=== PATIENT | female | born 1960 | race African-American/Black ===

== ENCOUNTER 2017-07-11 19:49 | Emergency (ER) | payer SELFPAY ==
[~2017-07-11] VITALS: Ht 160 cm; Wt 69.0 kg
[~2017-07-11 19:49] MED LIST: ASPI-1159 PO; ATEN50TA PO; GLIP10TA10 PO; METF10002 PO; PIOG15TA23 PO; PRAV10TA35 PO; SPIR100T24 PO
[2017-07-12] MEDS ORDERED: ATENOLOL 25MG TABLET PO ONE (07:00)
[2017-07-12] MEDS ORDERED: SPIRONOLACTONE 25MG TABLET PO SCH (07:00)
[2017-07-12 07:08] LABS: BASOPHILS % 0.7 % (0.0-2.0); HEMOGLOBIN. 13.7 g/dL (12.0-16.0); LYMPHOCYTES % 34.3 % (20.0-50.0); MEAN CORPUSCULAR HEMOGLOBIN 27.9 pg (28.0-32.0); MEAN CORPUSCULAR VOLUME 83.6 fL (81.0-99.0); MEAN PLATELET VOLUME 7.8 fl (7.4-10.4); MONOCYTES % 11.4 % (2.0-8.0); NEUTROPHILS % 52.6 % (40.0-76.0); PLATELET 354 x1000/uL (130-400); RED CELL DISTRIBUTION WIDTH 14.2 % (11.6-14.6)
[2017-07-12 07:16] LABS: INR 1.1; PROTHROMBIN TIME 11.4 sec (9.4-11.6)
[2017-07-12 07:31] LABS: BETA HYDROXYBUTYRATE 0.3 mMol/L (0.0-0.3); CARBON DIOXIDE 29 mEq/L (21-32); CHLORIDE 97 mEq/L (98-107); TROPONIN I 0.02 ng/mL (0.00-0.04)
[2017-07-12] MEDS ORDERED: ATENOLOL 100 MG TABLET PO ONE (08:15)
[2017-07-12 08:34] LABS: CLARITY URINE CLEAR (CLEAR); COLOR URINE YELLOW (YELLOW); KETONES URINE 1+ (NEGATIVE); LEUKOCYTE ESTERASE URINE NEGATIVE (NEGATIVE); NITRITE URINE NEGATIVE (NEGATIVE); OCCULT BLOOD URINE NEGATIVE (NEGATIVE); PROTEIN URINE 1+ (NEGATIVE); UROBILINOGEN URINE 0.2 E.U./dL (0.2-1.0)
[2017-07-12 10:14] LABS: *AMPHETAMINES SCREEN URINE PRESUMTIVE POSITIVE (NEGATIVE); *BARBITURATES SCREEN URINE NEGATIVE (NEGATIVE); CANNABINOID URINE SCREEN PRESUMTIVE POSITIVE (NEGATIVE); METHADONE URINE SCREEN NEGATIVE (NEGATIVE); OPIATES URINE SCREEN NEGATIVE (NEGATIVE); PHENCYCLIDINE URINE SCREEN NEGATIVE (NEGATIVE)
[2017-07-12 10:19] LABS: *BENZODIAZEPINES SCREEN URINE NEGATIVE (NEGATIVE); *COCAINE SCREEN URINE NEGATIVE (NEGATIVE)
[2017-07-12 11:13] VITALS: BP 156/92
[2017-07-12] MEDS ORDERED: SULFAMETHOXAZOLE/TRIMETHOPRIM 800/160MG TABLET PO ONE (11:15)
[2017-07-12 12:13] LABS: HEPATITIS B SURFACE ANTIGEN NEGATIVE
[2017-07-12 12:38] LABS: HEPATITIS B CORE AB IGM NEGATIVE
[2017-07-12 12:39] LABS: HEPATITIS A AB IGM NEGATIVE (NEGATIVE)
== END 2017-07-12 11:20 | disposition home or self-care (01) ==
LOC: ER 19:49
DX: M94.0 Chondrocostal junction syndrome [Tietze] (principal); N39.0 Urinary tract infection, site not specified; I10 Essential (primary) hypertension; E11.65 Type 2 diabetes mellitus with hyperglycemia; E11.21 Type 2 diabetes mellitus with diabetic nephropathy; N17.0 Acute kidney failure with tubular necrosis; F12.10 Cannabis abuse, uncomplicated; F15.10 Other stimulant abuse, uncomplicated; F17.200 Nicotine dependence, unspecified, uncomplicated; R81 Glycosuria; Z79.82 Long term (current) use of aspirin; Z91.14 Patient's other noncompliance with medication regimen; Z91.19 Patient's noncompliance with other medical treatment and regimen
CPT/HCPCS: 36415; 71045; 80053; 80305; 81001; 81025; 82010; 82962; 83036; 83880; 84484; 85025; 85610; 93005; 99285; Z7610; 86705; 86709; 86803; 87340

== ENCOUNTER 2017-10-10 16:26 | Emergency (ER) | payer BC ==
[~2017-10-10] VITALS: Ht 160 cm; Wt 64.0 kg
[2017-10-10 17:34] LABS: BASOPHILS % 0.7 % (0.0-2.0); EOSINOPHILS % 2.1 % (0.0-5.0); HEMATOCRIT. 36.4 % (36.0-48.0); HEMOGLOBIN. 12.2 g/dL (12.0-16.0); LYMPHOCYTES % 42.7 % (20.0-50.0); MEAN CORPUSCULAR HEMOGLOBIN 28.8 pg (28.0-32.0); MEAN CORPUSCULAR VOLUME 85.7 fL (81.0-99.0); MONOCYTES % 7.4 % (2.0-8.0); NEUTROPHILS % 47.1 % (40.0-76.0); PLATELET 342 x1000/uL (130-400); RED BLOOD CELL COUNT 4.25 mill/uL (4.2-5.4); RED CELL DISTRIBUTION WIDTH 15.3 % (11.6-14.6)
[2017-10-10 17:38] LABS: CHLORIDE 99 mEq/L (98-107)
[2017-10-10 17:45] LABS: PHOSPHORUS 2.7 mg/dL (2.5-4.9)
[2017-10-10 17:48] LABS: BETA HYDROXYBUTYRATE 0.2 mMol/L (0.0-0.3)
[2017-10-10] MEDS ORDERED: SODIUM CHLORIDE 0.9% 1,000 ML IV ONE (21:10)
[2017-10-10] MEDS ORDERED: INSULIN REGULAR (HUMULIN R) 300UNITS/3ML IV ONE (21:15)
[2017-10-10 23:01] VITALS: BP 171/107
== END 2017-10-11 00:45 | disposition home or self-care (01) ==
LOC: ER 17:20
DX: E11.65 Type 2 diabetes mellitus with hyperglycemia (principal); I10 Essential (primary) hypertension; E86.0 Dehydration; F17.200 Nicotine dependence, unspecified, uncomplicated; F12.10 Cannabis abuse, uncomplicated; Z79.82 Long term (current) use of aspirin; Z79.84 Long term (current) use of oral hypoglycemic drugs
CPT/HCPCS: 36415; 80053; 82010; 82962; 83735; 84100; 85025; 96361; 96374; 99284; J1815; J7030; Z7610

== ENCOUNTER 2019-03-16 18:09 | Emergency (ER) | payer SELFPAY ==
[~2019-03-16] VITALS: Ht 167.6 cm; Wt 57.0 kg
[~2019-03-16 18:09] MED LIST changes: -ASPI-1159 PO; +ASPI-1393 PO; +METF-416 PO; -METF10002 PO; -SPIR100T24 PO; +SPIR100T5 PO
[2019-03-16] MEDS ORDERED: SODIUM CHLORIDE 0.9% 1,000 ML IV ONE (18:30)
[2019-03-16] MEDS ORDERED: ONDANSETRON HCL 4MG/2ML INJ IV STA (18:30)
[2019-03-16 19:24] VITALS: BP 137/89
[2019-03-16 20:23] LABS: BASOPHILS % 0.5 % (0.0-2.0); EOSINOPHILS % 1.7 % (0.0-5.0); HEMATOCRIT. 43.9 % (36.0-48.0); HEMOGLOBIN. 14.6 g/dL (12.0-16.0); LYMPHOCYTES % 25.8 % (20.0-50.0); MEAN CORPUSCULAR HEMOGLOBIN 28.2 pg (28.0-32.0); MEAN CORPUSCULAR VOLUME 85.1 fL (81.0-99.0); MEAN PLATELET VOLUME 7.9 fl (7.4-10.4); MONOCYTES % 7.7 % (2.0-8.0); NEUTROPHILS % 64.3 % (40.0-76.0); PLATELET 292 x1000/uL (130-400); RED BLOOD CELL COUNT 5.16 mill/uL (4.2-5.4); RED CELL DISTRIBUTION WIDTH 15.4 % (11.6-14.6)
[2019-03-16 20:30] LABS: PROTHROMBIN TIME 10.2 sec (9.6-11.0)
[2019-03-16 20:47] LABS: CHLORIDE 98 mEq/L (98-107)
[2019-03-16 20:50] LABS: ETHANOL BLOOD < 10 mg/dL
[2019-03-16 21:34] LABS: CLARITY URINE CLEAR (CLEAR); COLOR URINE YELLOW (YELLOW); KETONES URINE NEGATIVE (NEGATIVE); LEUKOCYTE ESTERASE URINE NEGATIVE (NEGATIVE); NITRITE URINE NEGATIVE (NEGATIVE); OCCULT BLOOD URINE NEGATIVE (NEGATIVE); PROTEIN URINE NEGATIVE (NEGATIVE); SPECIFIC GRAVITY URINE 1.004 (1.005-1.030); UROBILINOGEN URINE 0.2 E.U./dL (0.2-1.0)
[2019-03-16 21:59] LABS: *AMPHETAMINES SCREEN URINE NEGATIVE (NEGATIVE); *BARBITURATES SCREEN URINE NEGATIVE (NEGATIVE); *BENZODIAZEPINES SCREEN URINE NEGATIVE (NEGATIVE)
[2019-03-16 22:00] LABS: METHADONE URINE SCREEN NEGATIVE (NEGATIVE)
[2019-03-16 22:01] LABS: CANNABINOID URINE SCREEN PRESUMTIVE POSITIVE (NEGATIVE); OPIATES URINE SCREEN NEGATIVE (NEGATIVE); PHENCYCLIDINE URINE SCREEN NEGATIVE (NEGATIVE)
[2019-03-16 22:07] LABS: *COCAINE SCREEN URINE NEGATIVE (NEGATIVE)
== END 2019-03-16 22:02 | disposition home or self-care (01) ==
LOC: ER 20:16
DX: R55 Syncope and collapse (principal); E86.0 Dehydration; F12.10 Cannabis abuse, uncomplicated; R53.83 Other fatigue; E11.9 Type 2 diabetes mellitus without complications; I10 Essential (primary) hypertension; K59.00 Constipation, unspecified; Z87.09 Personal history of other diseases of the respiratory system; Z87.440 Personal history of urinary (tract) infections; Z79.899 Other long term (current) drug therapy; Z79.82 Long term (current) use of aspirin
CPT/HCPCS: 36415; 70450; 71045; 80053; 80305; 80320; 81003; 83605; 84484; 85025; 85610; 93005; 96361; 96374; 99284; J2405; J7030; Z7610; G0480